=== PATIENT | female | born 1970 | race Two or more races ===

== ENCOUNTER 2022-02-06 21:08 | Inpatient (IN) | payer OTHER ==
[~2022-02-06] VITALS: Ht 154.9 cm; Wt 73.2 kg
[2022-02-06] MEDS ORDERED: ADENOSINE 6 MG/2 ML INJ IV ONE ×6 (21:26→22:00)
[2022-02-06] MEDS ORDERED: ASPirin 81 mg TAB PO ONE ×2 (21:30→22:30)
[2022-02-06] MEDS ORDERED: ENOXAPARIN SOD 100 MG/1 ML SYRINGE SC ONE (21:30)
[2022-02-06] MEDS ORDERED: AMIODARONE HCL (50 MG/ ML) 3 ML VIAL IV ONE (21:40)
[2022-02-06 21:47] LABS: Basophils # (auto) 0 10 ^3/uL (0-0.2); Eosinophils # (auto) 0 10 ^3/uL (0-0.8); Monocytes # (auto) 1.1 10 ^3/uL (0-1.3)
[2022-02-06] MEDS ORDERED: ONDANSETRON HCL 4 MG/2 ML VIAL ONE (21:47)
[2022-02-06 21:48] LABS: Basophils % (auto) 0.3 % (0.0-2.0); Eosinophils % (auto) 0.4 % (0.0-7.0); Hematocrit 36.4 % (36.0-46.0); Hemoglobin 12.1 g/dL (12.2-16.2); Lymphocytes % (auto) 12.2 % (10.0-50.0); Mean Corpuscular Hemoglobin 25.7 pg (28.0-32.0); Mean Corpuscular Hgb Conc. 33.1 g/dL (32.0-36.0); Mean Corpuscular Volume 77.5 fL (80.0-100.0); Monocytes % (auto) 14.4 % (0.0-12.0); Neutrophils # (auto) 5.7 10 ^3/uL (1.6-8.6); Neutrophils % (auto) 72.7 % (37.0-80.0); Red Blood Cells 4.69 10^6/uL (4.0-5.20); White Blood Cell 7.9 10^3/uL (4.4-10.8)
[2022-02-06 22:00] LABS: INR 1.03 (0.9-1.15); Partial Thromboplastin Time 26.5 sec (24.6-33.4)
[2022-02-06] MEDS ORDERED: AMIODARONE HCL 150 MG in D5W 5% 100 ML IV ONE (22:00)
[2022-02-06] MEDS ORDERED: ONDANSETRON HCL 4 MG/2 ML VIAL IV PRN ×2 (22:00→23:15)
[2022-02-06 22:04] LABS: Albumin 3.9 g/dL (3.4-5.0); BUN/Creatinine Ratio 15.3; Calcium 8.8 mg/dL (8.5-10.1); Magnesium 1.9 mg/dL (1.6-2.6); Potassium 3.5 mmol/L (3.5-5.1)
[2022-02-06 22:13] LABS: Bilirubin, Total 0.4 mg/dL (0.2-1.0)
[2022-02-06] MEDS ORDERED: AMIODARONE 450mg/250ml AE 250 ML IV SCH (22:15)
[2022-02-06 22:28] LABS: Beta HCG, Quantitative < 1 mlU/mL (1-3)
[2022-02-06] MEDS ORDERED: SODIUM CHLORIDE 0.9% 1,000 ML IV ONE (23:00)
[2022-02-06] MEDS ORDERED: DOCUSATE SOD 100 MG CAP PO PRN (23:15)
[2022-02-06] MEDS ORDERED: HYDROcodone-ACET 5/325MG TAB PO PRN (23:15)
[2022-02-06] MEDS: SODIUM CHLORIDE 0.9% 1,000 ML IV SCH (23:15)
[2022-02-06] MEDS ORDERED: MORPHINE SULFATE INJ 2 MG/ml SYRG IV PRN (23:15)
[2022-02-06] MEDS ORDERED: ACETAMINOPHEN 325 MG TAB PO PRN (23:15)
[2022-02-06] MEDS ORDERED: NITROGLYCERIN 0.4 MG SL TAB SL PRN (23:15)
[2022-02-07 03:12] VITALS: BP 116/53
[2022-02-07] MEDS ORDERED: METO25TA93 PO (04:48)
[2022-02-07] MEDS ORDERED: ATOR40TA52 PO (04:48)
[2022-02-07] MEDS ORDERED: ASPI81CH59 PO (04:48)
[2022-02-07 04:51] VITALS: BP 116/53
[2022-02-07] MEDS: AMIODARONE 450mg/250ml AE 250 ML IV SCH ×2 (05:17→19:35)
[2022-02-07 07:05] LABS: Basophils # (auto) 0 10 ^3/uL (0-0.2); Basophils % (auto) 0.4 % (0.0-2.0); Eosinophils # (auto) 0 10 ^3/uL (0-0.8); Eosinophils % (auto) 0.1 % (0.0-7.0); Hemoglobin 10.4 g/dL (12.2-16.2); Monocytes # (auto) 0.7 10 ^3/uL (0-1.3); Nucleated Red Blood Cells % 0.1 %
[2022-02-07 07:08] LABS: Hematocrit 31.7 % (36.0-46.0); Lymphocytes % (auto) 18.5 % (10.0-50.0); Mean Corpuscular Hemoglobin 25.3 pg (28.0-32.0); Mean Corpuscular Hgb Conc. 32.8 g/dL (32.0-36.0); Mean Corpuscular Volume 77.1 fL (80.0-100.0); Monocytes % (auto) 12.8 % (0.0-12.0); Neutrophils # (auto) 3.6 10 ^3/uL (1.6-8.6); Neutrophils % (auto) 68.2 % (37.0-80.0); Red Blood Cells 4.11 10^6/uL (4.0-5.20); Red Cell Distribution Width 16.9 % (11.8-14.3); White Blood Cell 5.3 10^3/uL (4.4-10.8)
[2022-02-07 07:21] LABS: Calcium 7.7 mg/dL (8.5-10.1); Potassium 3.7 mmol/L (3.5-5.1)
[2022-02-07 07:23] LABS: BUN/Creatinine Ratio 18.5
[2022-02-07 07:26] LABS: Bilirubin, Total 0.4 mg/dL (0.2-1.0); Total Protein 6.4 g/dL (6.4-8.2)
[2022-02-07] MEDS: CARVEDILOL 3.125 MG TAB PO SCH ×2 (09:40→21:57)
[2022-02-07] MEDS: ENOXAPARIN SOD 40 MG/0.4 ML SYRINGE SC SCH (09:40)
[2022-02-07] MEDS: ASPirin 81 mg TAB PO SCH (09:40)
[2022-02-07] MEDS ORDERED: FAMOTIDINE (10MG/ML) 2ML VL IV SCH (10:00)
[2022-02-07] MEDS ORDERED: ZINC SULFATE 220mg CAP or TAB PO ONE (10:30)
[2022-02-07] MEDS ORDERED: CHOLECALCIFEROL (VITD3) 2,000 UNIT CAP/TAB PO ONE (10:30)
[2022-02-07 13:00] VITALS: BP 136/64
[2022-02-07 17:00] VITALS: BP 122/70
[2022-02-07] MEDS: SODIUM CHLORIDE 0.9% 1,000 ML IV SCH (17:58)
[2022-02-07] MEDS: ASCORBIC ACID 500 MG TAB PO SCH (21:58)
[2022-02-07 22:00] VITALS: BP 121/56
[2022-02-08 05:00] VITALS: BP 115/45
[2022-02-08 09:00] VITALS: BP 134/61
[2022-02-08] MEDS: ASCORBIC ACID 500 MG TAB PO SCH ×2 (09:19→22:11)
[2022-02-08] MEDS: ASPirin 81 mg TAB PO SCH (09:19)
[2022-02-08] MEDS: ZINC SULFATE 220mg CAP or TAB PO SCH (09:19)
[2022-02-08] MEDS: FAMOTIDINE (10MG/ML) 2ML VL IV SCH (09:19)
[2022-02-08] MEDS: CHOLECALCIFEROL (VITD3) 2,000 UNIT CAP/TAB PO SCH (09:19)
[2022-02-08] MEDS: ENOXAPARIN SOD 40 MG/0.4 ML SYRINGE SC SCH (09:19)
[2022-02-08] MEDS: CARVEDILOL 3.125 MG TAB PO SCH ×2 (09:20→22:13)
[2022-02-08] MEDS: SODIUM CHLORIDE 0.9% 1,000 ML IV SCH (09:23)
[2022-02-08] MEDS: AMIODARONE 450mg/250ml AE 250 ML IV SCH (10:28)
[2022-02-08 13:00] VITALS: BP 110/53
[2022-02-08 17:00] VITALS: BP 121/73
[2022-02-08 20:00] VITALS: BP 126/55
[2022-02-08 22:00] VITALS: BP 126/55
[2022-02-09] VITALS (8 sets, daily range): BP systolic 106–160; BP diastolic 41–54
[2022-02-09] MEDS: SODIUM CHLORIDE 0.9% 1,000 ML IV SCH ×2 (01:16→17:29)
[2022-02-09] MEDS: AMIODARONE 450mg/250ml AE 250 ML IV SCH ×2 (01:17→17:29)
[2022-02-09] MEDS: ASPirin 81 mg TAB PO SCH (10:14)
[2022-02-09] MEDS: FAMOTIDINE (10MG/ML) 2ML VL IV SCH (10:14)
[2022-02-09] MEDS: CHOLECALCIFEROL (VITD3) 2,000 UNIT CAP/TAB PO SCH (10:15)
[2022-02-09] MEDS: ASCORBIC ACID 500 MG TAB PO SCH ×2 (10:15→22:08)
[2022-02-09] MEDS: CARVEDILOL 3.125 MG TAB PO SCH ×2 (10:15→22:08)
[2022-02-09] MEDS: ZINC SULFATE 220mg CAP or TAB PO SCH (10:15)
[2022-02-09] MEDS: ENOXAPARIN SOD 40 MG/0.4 ML SYRINGE SC SCH (10:15)
[2022-02-09 14:02] LABS: Hematocrit 33.2 % (36.0-46.0); Hemoglobin 10.5 g/dL (12.2-16.2)
[2022-02-10] MEDS: guaiFENesin-DM 100/10mg/5ml SYR PO PRN ×2 (00:12→10:15)
[2022-02-10 05:00] VITALS: BP 105/54
[2022-02-10 08:00] VITALS: BP 117/71
[2022-02-10 09:00] VITALS: BP 117/71
[2022-02-10] MEDS: AMIODARONE 450mg/250ml AE 250 ML IV SCH (10:13)
[2022-02-10] MEDS: ASPirin 81 mg TAB PO SCH (10:14)
[2022-02-10] MEDS: ZINC SULFATE 220mg CAP or TAB PO SCH (10:14)
[2022-02-10] MEDS: CARVEDILOL 3.125 MG TAB PO SCH (10:14)
[2022-02-10] MEDS: CHOLECALCIFEROL (VITD3) 2,000 UNIT CAP/TAB PO SCH (10:14)
[2022-02-10] MEDS: FAMOTIDINE (10MG/ML) 2ML VL IV SCH (10:14)
[2022-02-10] MEDS: ASCORBIC ACID 500 MG TAB PO SCH (10:14)
[2022-02-10] MEDS: ENOXAPARIN SOD 40 MG/0.4 ML SYRINGE SC SCH (10:15)
[2022-02-10] MEDS: SODIUM CHLORIDE 0.9% 1,000 ML IV SCH (10:15)
[2022-02-10] MEDS ORDERED: ASCO500T11 PO (12:44)
[2022-02-10] MEDS ORDERED: CHOL1CAP47 PO (12:44)
[2022-02-10] MEDS ORDERED: DOXY-340 PO (12:44)
[2022-02-10] MEDS ORDERED: CAR3125T PO (12:44)
[2022-02-10] MEDS ORDERED: DEXT1SYP9 PO (12:44)
[2022-02-10] MEDS ORDERED: AMIO200T33 PO (12:46)
[2022-02-10 13:00] VITALS: BP 112/64
[2022-02-10 14:23] VITALS: BP 112/64
[2022-02-10] MEDS ORDERED: AMIODARONE HCL 200 MG TAB PO SCH (22:00)
== END 2022-02-10 15:55 | disposition home or self-care (01) | DRG 178 ==
LOC: ER 21:08 → OVERFLOW 23:10 → TELE-CENTR 02-07 03:30
PROVIDERS: ADMIT Nurse Practitioner Family; ATTEND Internal Medicine
PROC: 05HB33Z Insertion of Infusion Device into Right Basilic Vein, Percutaneous Approach (ICD-10-PCS; principal; 2022-02-09)
PROC: B54MZZA Ultrasonography of Right Upper Extremity Veins, Guidance (ICD-10-PCS; 2022-02-09)
DX: U07.1 COVID-19 (principal); E44.1 Mild protein-calorie malnutrition; I47.1 Supraventricular tachycardia; D64.9 Anemia, unspecified; E78.5 Hyperlipidemia, unspecified; J06.9 Acute upper respiratory infection, unspecified; Z68.30 Body mass index [BMI] 30.0-30.9, adult; R79.89 Other specified abnormal findings of blood chemistry; I49.9 Cardiac arrhythmia, unspecified
CPT/HCPCS: 36415; 71045; 80053; 83036; 83735; 83880; 84443; 84484; 84702; 85014; 85018; 85025; 85610; 85730; 93005; 93306; 96365; 96372; 96376; 99291; G0378; J0153; J2405; J3490; J7060